=== PATIENT | female | born 1955 | race Two or more races ===

== ENCOUNTER 2017-11-25 12:45 | Outpatient (CLI) | payer OTHER | END 2017-11-25 12:53 | disposition home or self-care (01) | LOC: SONOGRAMA 12:45 | DX: N60.11 Diffuse cystic mastopathy of right breast (principal); N60.12 Diffuse cystic mastopathy of left breast; N63.21 Unspecified lump in the left breast, upper outer quadrant ==

== ENCOUNTER → 2017-12-16 | Day surgery (SDC) | payer OTHER ==
[~2017-12-16] MED LIST: AMLODIPINE BESY10 MG PO; ATORVASTATIN CA40 MG PO; AVAPRO150 MG PO; GLIPIZIDE5 MG PO; LEVO-T112 MCG PO; METOPROLOL TAR100 MG PO; NORVASC10 MG PO; OMEPRAZOLE40 MG PO; ZANTAC300 MG PO
== END | disposition home or self-care (01) ==
LOC: CIR.AMB 06:00
DX: D24.2 Benign neoplasm of left breast (principal)

== ENCOUNTER 2018-05-29 11:07 | Outpatient (CLI) | payer OTHER | END 2018-05-29 11:11 | disposition home or self-care (01) | LOC: MAMO-SONO 11:07 | DX: D49.3 Neoplasm of unspecified behavior of breast (principal); N60.11 Diffuse cystic mastopathy of right breast; N60.12 Diffuse cystic mastopathy of left breast ==